=== PATIENT | female | born 1955 | race Caucasian/White ===

== ENCOUNTER 2022-03-13 19:27 | Inpatient (IN) | payer OTHER, MEDICAID ==
[~2022-03-13] VITALS: Ht 162.6 cm; Wt 99.0 kg
[2022-03-13 20:26] LABS: BASOPHILS % 0.5 % (0.0-2.0); EOSINOPHILS % 2.2 % (0.0-5.0); HEMOGLOBIN. 12.6 g/dL (12.0-16.0); MEAN CORPUSCULAR VOLUME 99.5 fL (81.0-99.0); MEAN PLATELET VOLUME 9.2 fl (7.4-10.4); MONOCYTES % 8.1 % (2.0-8.0); NEUTROPHILS % 65.2 % (40.0-76.0); PLATELET 284 x1000/uL (130-400); RED BLOOD CELL COUNT 3.82 mill/uL (4.2-5.4); RED CELL DISTRIBUTION WIDTH 14.6 % (11.6-14.6)
[2022-03-13 20:36] LABS: CHLORIDE 109 mEq/L (98-107)
[2022-03-13] MEDS ORDERED: DILTIAZEM HCL 5MG/ML 5ML VIAL IV ONE (21:00)
[2022-03-13] MEDS ORDERED: METOPROLOL TARTRATE 25MG TABLET PO ONE (22:15)
[2022-03-13] MEDS ORDERED: METOPROLOL TARTRATE 5MG/5ML VIAL IV NR (22:15)
[2022-03-14] MEDS ORDERED: ACETAMINOPHEN 325MG TABLET PO ONE
[2022-03-14] MEDS ORDERED: ACETAMINOPHEN 325MG TABLET PO NR (00:30)
[2022-03-14] MEDS ORDERED: ASPIRIN 325MG TABLET PO ONE (01:15)
[2022-03-14] MEDS ORDERED: ONDANSETRON HCL 4MG/2ML INJ IV PRN (08:30)
[2022-03-14] MEDS ORDERED: FUROSEMIDE 40MG/4ML VIAL IVP SCH (09:00)
[2022-03-14] MEDS: METOPROLOL TARTRATE 25MG TABLET PO SCH ×2 (10:36→20:19)
[2022-03-14 11:05] LABS: INR 1.1; PROTHROMBIN TIME 12.2 sec (9.6-11.0)
[2022-03-14 12:00] VITALS: BP 107/60
[2022-03-14] MEDS ORDERED: DILTIAZEM HCL 30MG TABLET PO SCH (12:00)
[2022-03-14 14:20] VITALS: BP 126/89
[2022-03-14 16:00] VITALS: BP 122/60
[2022-03-14] MEDS: ENOXAPARIN 100MG/ML SYR SUBCUT SCH ×2 (18:14→23:29)
[2022-03-14] MEDS: FUROSEMIDE 40MG/4ML VIAL IVP SCH (18:18)
[2022-03-14] MEDS ORDERED: MOME13HF2 INH (18:26)
[2022-03-14] MEDS ORDERED: HYDR25TA PO (18:26)
[2022-03-14] MEDS ORDERED: LEVA15HF6 IH (18:26)
[2022-03-14] MEDS ORDERED: APIX5TAB PO (18:26)
[2022-03-14 20:00] VITALS: BP 108/74
[2022-03-14 21:26] LABS: CLARITY URINE CLEAR (CLEAR); COLOR URINE YELLOW (YELLOW); KETONES URINE NEGATIVE (NEGATIVE); LEUKOCYTE ESTERASE URINE 2+ (NEGATIVE); NITRITE URINE NEGATIVE (NEGATIVE); OCCULT BLOOD URINE NEGATIVE (NEGATIVE); PROTEIN URINE NEGATIVE (NEGATIVE); SPECIFIC GRAVITY URINE 1.007 (1.005-1.030); UROBILINOGEN URINE 0.2 E.U./dL (0.2-1.0)
[2022-03-14 21:47] LABS: *AMPHETAMINES SCREEN URINE NEGATIVE (NEGATIVE); *BARBITURATES SCREEN URINE NEGATIVE (NEGATIVE); *BENZODIAZEPINES SCREEN URINE NEGATIVE (NEGATIVE); *COCAINE SCREEN URINE NEGATIVE (NEGATIVE); CANNABINOID URINE SCREEN NEGATIVE (NEGATIVE); METHADONE URINE SCREEN NEGATIVE (NEGATIVE); OPIATES URINE SCREEN NEGATIVE (NEGATIVE); PHENCYCLIDINE URINE SCREEN NEGATIVE (NEGATIVE)
[2022-03-15] VITALS (7 sets, daily range): BP systolic 107–130; BP diastolic 73–83
[2022-03-15] MEDS: ACETAMINOPHEN 325MG TABLET PO PRN ×3 (04:39→19:46)
[2022-03-15] MEDS: FUROSEMIDE 40MG/4ML VIAL IVP SCH (05:47)
[2022-03-15] MEDS ORDERED: LOSARTAN POTASSIUM 25 MG TABLET PO SCH (09:00)
[2022-03-15] MEDS: SPIRONOLACTONE 25MG TABLET PO SCH (09:16)
[2022-03-15] MEDS: ENOXAPARIN 100MG/ML SYR SUBCUT SCH ×2 (09:16→20:36)
[2022-03-15] MEDS: METOPROLOL TARTRATE 25MG TABLET PO SCH (09:16)
[2022-03-15] MEDS ORDERED: LOSA25TA3 PO (10:59)
[2022-03-15] MEDS ORDERED: APIX5TAB MT (10:59)
[2022-03-15] MEDS ORDERED: SPIR25TA PO (10:59)
[2022-03-15] MEDS ORDERED: METO25TA6 PO ×2 (10:59)
[2022-03-15] MEDS ORDERED: LEVO500T90 MT (10:59)
[2022-03-15] MEDS: LEVOFLOXACIN 500MG TABLET PO SCH (11:22)
[2022-03-15] MEDS ORDERED: METOPROLOL TARTRATE 25MG TABLET PO NR (13:00)
[2022-03-15 20:19] LABS: T4 FREE 1.15 ng/dL (0.76-1.46)
[2022-03-15] MEDS: METOPROLOL TARTRATE 50MG TABLET PO SCH (20:35)
[2022-03-16] VITALS: BP 112/70
[2022-03-16 04:00] VITALS: BP 101/70
[2022-03-16 08:00] VITALS: BP 103/67
[2022-03-16] MEDS: METOPROLOL TARTRATE 50MG TABLET PO SCH (08:38)
[2022-03-16] MEDS: SPIRONOLACTONE 25MG TABLET PO SCH (08:38)
[2022-03-16] MEDS: ENOXAPARIN 100MG/ML SYR SUBCUT SCH (08:38)
[2022-03-16] MEDS: ACETAMINOPHEN 325MG TABLET PO PRN (08:56)
[2022-03-16] MEDS ORDERED: METO-539 MT (10:53)
[2022-03-16] MEDS: LEVOFLOXACIN 500MG TABLET PO SCH (11:59)
[2022-03-16 12:00] VITALS: BP 119/82
[2022-03-16 13:13] VITALS: BP 119/82
[2022-03-16 14:12] LABS: CHLORIDE 102 mEq/L (98-107)
[2022-03-16] MEDS ORDERED: INFLUENZA VACCINE 05/PF 0.5 ML SYRINGE IM ONE (16:30)
== END 2022-03-16 16:37 | disposition home or self-care (01) | DRG 871 ==
LOC: ER 19:27 → MICUSO 03-14 01:12 → 6WST 03-14 09:26
PROVIDERS: ADMIT Internal Medicine; ATTEND Internal Medicine
DX: A41.9 Sepsis, unspecified organism (principal); I50.23 Acute on chronic systolic (congestive) heart failure; E44.1 Mild protein-calorie malnutrition; N39.0 Urinary tract infection, site not specified; I48.91 Unspecified atrial fibrillation; I11.0 Hypertensive heart disease with heart failure; Z20.822 Contact with and (suspected) exposure to COVID-19; E87.8 Other disorders of electrolyte and fluid balance, not elsewhere classified; R06.01 Orthopnea; R60.0 Localized edema; F17.210 Nicotine dependence, cigarettes, uncomplicated; Z91.013 Allergy to seafood; Z91.09 Other allergy status, other than to drugs and biological substances; Z82.49 Family history of ischemic heart disease and other diseases of the circulatory system; Z71.6 Tobacco abuse counseling
CPT/HCPCS: 36415; 71045; 80048; 80053; 80305; 81003; 83735; 83880; 84439; 84443; 84481; 84484; 85025; 87426; 93005; 93306; 99291; C9803; J1650; J1940; J3490